=== PATIENT | female | born 1990 ===

== ENCOUNTER 2021-02-20 06:39 | Day surgery (SDC) | payer OTHER ==
[~2021-02-20] VITALS: Ht 157.5 cm; Wt 81.2 kg
[2021-02-20] MEDS ORDERED: PRENATAL CAPLE1 EAC1 PO (09:22)
== END 2021-02-20 18:50 | disposition home or self-care (01) ==
LOC: CIR.AMB 06:39 → LDR 06:39 → O/R 15:44 → LDR 15:44 → O/R 15:44 → EDSTATUS 16:00 → O/R 18:50 → CIR.AMB 18:50
PROVIDERS: ATTEND Obstetrics & Gynecology
DX: O34.32 Maternal care for cervical incompetence, second trimester (principal); Z3A.15 15 weeks gestation of pregnancy; Z20.822 Contact with and (suspected) exposure to COVID-19

== ENCOUNTER 2021-08-02 07:15 | Inpatient (IN) | payer OTHER ==
[~2021-08-02] VITALS: Ht 157.5 cm; Wt 3.6 kg
[~2021-08-02 07:15] MED LIST: PRENATAL CAPLE1 EAC1 PO
[2021-08-07] MEDS ORDERED: PRENATAL CAPLE1 EAC1 PO (10:35)
== END 2021-08-09 15:46 | disposition home or self-care (01) | DRG 786 ==
LOC: OB/GYN 08-07 07:00 → O/R 08-07 10:10 → SURG-SUITE 08-07 10:10
PROVIDERS: ADMIT Obstetrics & Gynecology; ATTEND Obstetrics & Gynecology
PROC: 0UCC0ZZ Extirpation of Matter from Cervix, Open Approach (ICD-10-PCS; 2021-08-07)
PROC: 4A1HXFZ Monitoring of Products of Conception, Cardiac Rhythm, External Approach (ICD-10-PCS; 2021-08-07)
PROC: 10D00Z1 Extraction of Products of Conception, Low, Open Approach (ICD-10-PCS; principal; 2021-08-07 07:00)
DX: O34.211 Maternal care for low transverse scar from previous cesarean delivery (principal); O34.33 Maternal care for cervical incompetence, third trimester; Z3A.39 39 weeks gestation of pregnancy; Z37.0 Single live birth